=== PATIENT | female | born 1950 | race Caucasian/White ===

== ENCOUNTER 2019-02-15 06:27 | Day surgery (SDC) | payer MEDICARE, OTHER ==
[2019-02-14 10:52] VITALS: BMI 18.0
[~2019-02-15 06:27] MED LIST: Fluorouracil 100 MG, Enoxaparin Sodium 25 MG, EPINEPHrine 0.3 MG in Ophthalmic Irrigati... IRR SCH
[2019-02-15] MEDS ORDERED: Fentanyl 100 MCG/2 ML VIAL ONE (06:46)
[2019-02-15] MEDS ORDERED: Midazolam HCl 2 mg/2 ml Vial ONE (06:46)
[2019-02-15] MEDS ORDERED: Phenylephrine 2.5% Ophth Soln 5 ML BOT ONE (06:51)
[2019-02-15] MEDS ORDERED: Cyclopentolate 1% Opth Drop 2 ML BOT ONE (06:51)
--- NOTE | 2019-02-15 12:19 | OP ---
DATE OF PROCEDURE: 02/15/2019 PREOPERATIVE DIAGNOSIS: Epiretinal membrane, right eye. POSTOPERATIVE DIAGNOSIS: Epiretinal membrane, right eye. PROCEDURE PERFORMED: Pars plana vitrectomy and epiretinal membrane peel, right eye. ANESTHESIA: Local with monitored anesthesia care. PROCEDURE IN DETAIL: The patient was identified in the preoperative holding area. Appropriate informed consent for the planned surgical procedure on the right eye had been obtained. The patient was transported to the operative suite. Appropriate cardiopulmonary monitoring was established. Local anesthesia was obtained using retrobulbar modified [place]int lid block using 50:50 mixture of 4% lidocaine and 0.75% bupivacaine. The patient was prepped and draped in the usual sterile manner for ophthalmic surgery in the right eye. Lid speculum was placed in the right eye. A 27-gauge trocar was placed supratemporally, inferotemporally, and supranasally. Infusion line was placed inferotemporally. Light pipe vitreous cutter was inserted in the eye. Core vitrectomy was performed. Indocyanine green dye was infused on the posterior pole x1, identifying the epiretinal membrane. This was elevated using membrane scraper and peeled across the macula using end-gripping forceps. Indirect ophthalmoscopy was used to exam the retina 360 degrees. No holes, breaks, or tears were identified. Prophylactic laser was placed behind the sclerotomy sites. The trocars were removed. Eye was noted to retain pressure well. Retrobulbar Kenalog and subconjunctival Ancef were placed. Antibiotic ointment was placed. Eye was patched and shielded. The patient was taken to postoperative recovery unit in good condition, having suffered no immediate perioperative complications. The patient was instructed to keep patch and shield on, avoid lifting and bending, followup appointment with Dr. Pollock. Job ID: [id number]
[2019-02-15] MEDS ORDERED: Bupivacaine PF 0.75% SDV 10 ML ONE (14:28)
[2019-02-15] MEDS ORDERED: CEFAZOLIN 1 GM VIAL ONE (14:28)
[2019-02-15] MEDS ORDERED: Indocyanine Green 25 MG/10 ML VIAL ONE (14:28)
[2019-02-15] MEDS ORDERED: Triamcinolone 40 MG/ML VIAL ONE (14:28)
[2019-02-15] MEDS ORDERED: Lidocaine 4% PF 5 ML AMP ONE (14:28)
[2019-02-15] MEDS ORDERED: Lidocaine 1% PF 5 ML VIAL ONE (14:28)
[2019-02-15] MEDS ORDERED: Maxitrol 0.1% Opth Oint 3.5 GM TUBE ONE (14:28)
[2019-02-15] MEDS ORDERED: PROPOFOL 200 MG/20 ML VIAL ONE (14:28)
== END 2019-02-15 09:40 | disposition home or self-care (01) ==
LOC: SDC 06:27
PROVIDERS: ATTEND Ophthalmology Retina Specialist
PROC: 08B43ZZ Excision of Right Vitreous, Percutaneous Approach (ICD-10-PCS; principal; 2019-02-15)
PROC: 08NE3ZZ Release Right Retina, Percutaneous Approach (ICD-10-PCS; 2019-02-15)
DX: H35.371 Puckering of macula, right eye (principal); Z88.5 Allergy status to narcotic agent
CPT/HCPCS: J0171; J0690; J1650; J2001; J2250; J2704; J3010; J3301; J3490; J9190

== ENCOUNTER 2019-08-14 14:24 | Outpatient (CLI) | payer MEDICARE, OTHER | END 2019-08-14 14:25 | disposition home or self-care (01) | LOC: CTENTCT 14:24 | PROVIDERS: ATTEND Specialist | DX: R51 Headache (principal) | CPT/HCPCS: 70486 ==